=== PATIENT | male | born 1950 | race Caucasian/White ===

== ENCOUNTER 2018-04-05 15:15 | Inpatient (IN) | payer MEDICARE, OTHER ==
[2018-04-05] MEDS: IPRATROPIUM (NEB) 0.5 MG/2.5 ML AMP INH (15:31)
[2018-04-05] MEDS: ALBUTEROL 0.083% (NEB) 2.5 MG/3 ML AMP HHN (15:31)
[2018-04-05 15:39] LABS: ADD MAN DIFF? NO
[2018-04-05 15:47] LABS: WHITE BLOOD COUNT 6.9 10^3/ul (4.8-10.8)
[2018-04-05 15:47] LABS: ABNORMAL IP MESSAGE 1; BASOPHILS % 0.6 % (0.0-2.0); EOSINOPHILS % 0.1 % (0.0-7.0); HEMATOCRIT 33.7 % (42.0-52.0); HEMOGLOBIN 11.1 g/dl (14.0-18.0); LYMPHOCYTES # 0.5 10^3/ul (0.8-2.9); LYMPHOCYTES % 7.6 % (15.0-51.0); MEAN CORPUSCULAR HEMOGLOBIN 28.2 pg (29.0-33.0); MEAN CORPUSCULAR HGB CONC 32.9 g/dl (32.0-37.0); MEAN CORPUSCULAR VOLUME 85.5 fl (82.0-101.0); MEAN PLATELET VOLUME 11.4 fl (7.4-10.4); MONOCYTE # 0.8 10^3/ul (0.3-0.9); MONOCYTES % 11.1 % (0.0-11.0); NEUTROPHIL # 5.5 10^3/ul (1.6-7.5); NEUTROPHILS % 80.3 % (39.0-77.0); PLATELET COUNT 184 10^3/UL (140-415); POSITIVE DIFF @See below; RED BLOOD COUNT 3.94 10^6/ul (4.70-6.10); RED CELL DISTRIBUTION WIDTH 14.4 % (11.5-14.5)
[2018-04-05] MEDS: SOD CHLORIDE 0.9% 1,000 ML IV ×2 (15:52→16:49)
[2018-04-05] MEDS: CEFEPIME 1GM/50 ML (PMX) 50 ML IVPB (16:01)
[2018-04-05 16:19] LABS: ALANINE AMINOTRANSFERASE 18 IU/L (13-69); ALBUMIN 3.6 g/dl (3.3-4.9); ALBUMIN/GLOBULIN RATIO 1.02; ALKALINE PHOSPHATASE 100 IU/L (42-121); ANION GAP 14 (5-13); ASPARTATE AMINO TRANSFERASE 23 IU/L (15-46); BILIRUBIN,INDIRECT 0.6 mg/dl (0-1.1); BILIRUBIN,TOTAL 0.6 mg/dl (0.2-1.3); BLOOD UREA NITROGEN 28 mg/dl (7-20); CALCIUM 9.7 mg/dl (8.4-10.2); CARBON DIOXIDE 25 mmol/L (21-31); CHLORIDE 100 mmol/L (97-110); CREATININE 0.59 mg/dl (0.61-1.24); Estimated GFR > 60 mL/min (>60); GLUCOSE 119 mg/dl (70-220); POTASSIUM 4.3 mmol/L (3.5-5.1); SODIUM 139 mmol/L (135-144); TOTAL PROTEIN 7.1 g/dl (6.1-8.1)
[2018-04-05 16:21] LABS: LACTIC ACID 2.2 mmol/L (0.5-2.0)
[2018-04-05 16:26] LABS: B-TYPE NATRIURETIC PEPTIDE 660 PG/ML (0-125)
[2018-04-05] MEDS: VANCOMYCIN 1 GM (PMX) 250 ML IVPB (16:48)
[2018-04-05] MEDS ORDERED: ACETAMINOPHEN 325 MG TAB PO (17:00)
[2018-04-05] MEDS ORDERED: ONDANSETRON 4 MG INJ IV (17:00)
[2018-04-05] MEDS ORDERED: DOCUSATE SODIUM 100 MG CAP PO (19:30)
[2018-04-05] MEDS ORDERED: ALBUTEROL 0.083% (NEB) 2.5 MG/3 ML AMP HHN (19:30)
[2018-04-05] MEDS ORDERED: GUAIFENESIN/DM 5ML CUP PO (19:30)
[2018-04-05] MEDS: TOPIRAMATE 100 MG TAB PO (20:57)
[2018-04-05] MEDS: CEFTRIAXONE 2 GM/50 ML (PMX) 50 ML IVPB (21:10)
[2018-04-05] MEDS: LEVETIRACETAM 500 MG TAB PO (21:11)
[2018-04-05] MEDS: METHADONE 10 MG TAB PO (21:12)
[2018-04-06 03:27] LABS: ADD UMIC YES; UR ASCORBIC ACID NEGATIVE (NEGATIVE); UR BACTERIA FEW /HPF (NONE SEEN); UR BILIRUBIN (Dip) 1+ mg/dL (NEGATIVE); UR BLOOD (Dip) NEGATIVE (NEGATIVE); UR CLARITY CLEAR (CLEAR); UR COLOR AMBER (YELLOW); UR GLUCOSE (Dip) NEGATIVE (NEGATIVE); UR KETONES (Dip) TRACE mg/dL (NEGATIVE); UR LEUKOCYTE ESTERASE (Dip) NEGATIVE Leu/ul (NEGATIVE); UR MUCUS FEW /HPF (NONE SEEN); UR NITRITE (Dip) NEGATIVE (NEGATIVE); UR RBC 1 /HPF (0-5); UR SPECIFIC GRAVITY (Dip) 1.035 (1.003-1.030); UR TOTAL PROTEIN (Dip) 1+ mg/dl (NEGATIVE); UR UROBILINOGEN (Dip) 2+ mg/dL (NEGATIVE); UR WBC 1 /HPF (0-5)
[2018-04-06] MEDS: LEVETIRACETAM 500 MG TAB PO ×2 (05:43→20:58)
[2018-04-06] MEDS: METHADONE 10 MG TAB PO ×2 (05:55→20:58)
[2018-04-06 06:02] LABS: ADD MAN DIFF? NO
[2018-04-06 06:09] LABS: WHITE BLOOD COUNT 5.9 10^3/ul (4.8-10.8)
[2018-04-06 06:09] LABS: BASOPHILS % 0.7 % (0.0-2.0); EOSINOPHILS % 0.2 % (0.0-7.0); HEMATOCRIT 28.9 % (42.0-52.0); HEMOGLOBIN 9.6 g/dl (14.0-18.0); LYMPHOCYTES # 0.7 10^3/ul (0.8-2.9); LYMPHOCYTES % 12.5 % (15.0-51.0); MEAN CORPUSCULAR HEMOGLOBIN 28.4 pg (29.0-33.0); MEAN CORPUSCULAR HGB CONC 33.2 g/dl (32.0-37.0); MEAN CORPUSCULAR VOLUME 85.5 fl (82.0-101.0); MEAN PLATELET VOLUME 10.8 fl (7.4-10.4); MONOCYTE # 0.7 10^3/ul (0.3-0.9); MONOCYTES % 11.6 % (0.0-11.0); NEUTROPHIL # 4.4 10^3/ul (1.6-7.5); NEUTROPHILS % 74.8 % (39.0-77.0); PLATELET COUNT 260 10^3/UL (140-415); RED BLOOD COUNT 3.38 10^6/ul (4.70-6.10); RED CELL DISTRIBUTION WIDTH 14.6 % (11.5-14.5)
[2018-04-06 06:28] LABS: INR 1.27; PROTIME 16.1 Sec (11.9-14.9); PT RATIO 1.3
[2018-04-06 06:31] LABS: LACTIC ACID 1.1 mmol/L (0.5-2.0)
[2018-04-06 06:35] LABS: ALANINE AMINOTRANSFERASE 17 IU/L (13-69); ALBUMIN 3.1 g/dl (3.3-4.9); ALKALINE PHOSPHATASE 75 IU/L (42-121); ANION GAP 5 (5-13); ASPARTATE AMINO TRANSFERASE 17 IU/L (15-46); BILIRUBIN,INDIRECT 0.3 mg/dl (0-1.1); BILIRUBIN,TOTAL 0.3 mg/dl (0.2-1.3); BLOOD UREA NITROGEN 24 mg/dl (7-20); CALCIUM 8.3 mg/dl (8.4-10.2); CARBON DIOXIDE 30 mmol/L (21-31); CHLORIDE 105 mmol/L (97-110); CREATININE 0.53 mg/dl (0.61-1.24); Estimated GFR > 60 mL/min (>60); GLUCOSE 122 mg/dl (70-220); MAGNESIUM 2.2 mg/dl (1.7-2.5); PHOSPHORUS 2.7 mg/dl (2.5-4.9); POTASSIUM 3.4 mmol/L (3.5-5.1); SODIUM 140 mmol/L (135-144); TOTAL PROTEIN 6.2 g/dl (6.1-8.1)
[2018-04-06 06:52] LABS: TROPONIN-I 0.128 ng/ml (0.000-0.120)
[2018-04-06] MEDS: TOPIRAMATE 100 MG TAB PO ×2 (09:00→20:59)
[2018-04-06] MEDS: ENOXAPARIN 40 MG/0.4 ML SYG SC (09:22)
[2018-04-06 09:38] LABS: HEMOGLOBIN A1C 5.5 % (0-5.9)
[2018-04-06] MEDS: POTASSIUM CHLORIDE 20 MEQ POWDER FOR ORAL SOLN PO (18:16)
[2018-04-06] MEDS: ASPIRIN (EC) 81 MG TAB PO (18:16)
[2018-04-06] MEDS: ENOXAPARIN 60 MG/0.6 ML SYG SC (21:07)
[2018-04-06] MEDS: clonAZEPAM 0.5 MG TAB PO (22:26)
[2018-04-06] MEDS: CEFTRIAXONE 2 GM/50 ML (PMX) 50 ML IVPB (22:28)
[2018-04-07 06:41] LABS: ADD MAN DIFF? NO
[2018-04-07 06:47] LABS: BASOPHIL # 0.1 10^3/ul (0.0-0.1); BASOPHILS % 0.7 % (0.0-2.0); EOSINOPHILS # 0.1 10^3/ul (0.0-0.5); EOSINOPHILS % 0.7 % (0.0-7.0); HEMATOCRIT 30.9 % (42.0-52.0); LYMPHOCYTES # 0.8 10^3/ul (0.8-2.9); LYMPHOCYTES % 11.2 % (15.0-51.0); MEAN CORPUSCULAR HGB CONC 32.4 g/dl (32.0-37.0); MEAN CORPUSCULAR VOLUME 86.6 fl (82.0-101.0); MEAN PLATELET VOLUME 11.4 fl (7.4-10.4); MONOCYTE # 0.6 10^3/ul (0.3-0.9); MONOCYTES % 8.5 % (0.0-11.0); NEUTROPHIL # 5.4 10^3/ul (1.6-7.5); NEUTROPHILS % 78.6 % (39.0-77.0); PLATELET COUNT 231 10^3/UL (140-415); RED BLOOD COUNT 3.57 10^6/ul (4.70-6.10); RED CELL DISTRIBUTION WIDTH 14.7 % (11.5-14.5)
[2018-04-07 06:47] LABS: WHITE BLOOD COUNT 6.8 10^3/ul (4.8-10.8)
[2018-04-07 07:22] LABS: CHOL/HDL RATIO 3.4 RATIO; HDL CHOLESTEROL 45 mg/dl (30-78); LDL CHOLESTEROL,CALCULATED 93 mg/dl; TRIGLYCERIDES 91 mg/dl (0-149)
[2018-04-07 07:22] LABS: CHOLESTEROL 156 mg/dl (100-200)
[2018-04-07 07:25] LABS: ALANINE AMINOTRANSFERASE 13 IU/L (13-69); ALBUMIN 3.4 g/dl (3.3-4.9); ALBUMIN/GLOBULIN RATIO 1.09; ALKALINE PHOSPHATASE 91 IU/L (42-121); ANION GAP 8 (5-13); ASPARTATE AMINO TRANSFERASE 26 IU/L (15-46); BILIRUBIN,INDIRECT 0.3 mg/dl (0-1.1); BILIRUBIN,TOTAL 0.3 mg/dl (0.2-1.3); BLOOD UREA NITROGEN 21 mg/dl (7-20); CALCIUM 8.7 mg/dl (8.4-10.2); CARBON DIOXIDE 26 mmol/L (21-31); CHLORIDE 106 mmol/L (97-110); CREATININE 0.41 mg/dl (0.61-1.24); Estimated GFR > 60 mL/min (>60); GLUCOSE 97 mg/dl (70-220); MAGNESIUM 2.2 mg/dl (1.7-2.5); PHOSPHORUS 2.7 mg/dl (2.5-4.9); POTASSIUM 3.6 mmol/L (3.5-5.1); SODIUM 140 mmol/L (135-144); TOTAL PROTEIN 6.5 g/dl (6.1-8.1)
[2018-04-07 07:41] LABS: TROPONIN-I 0.187 ng/ml (0.000-0.120)
[2018-04-07] MEDS: TOPIRAMATE 100 MG TAB PO ×2 (09:00→20:50)
[2018-04-07] MEDS: METHADONE 10 MG TAB PO ×2 (09:54→21:05)
[2018-04-07] MEDS: FOLIC ACID 1 MG TAB PO (09:55)
[2018-04-07] MEDS: LEVETIRACETAM 500 MG TAB PO ×2 (09:55→21:01)
[2018-04-07] MEDS: ASPIRIN (EC) 81 MG TAB PO (09:55)
[2018-04-07] MEDS: POTASSIUM CHLORIDE 20 MEQ POWDER FOR ORAL SOLN PO (09:55)
[2018-04-07] MEDS: ENOXAPARIN 60 MG/0.6 ML SYG SC ×2 (10:28→21:07)
[2018-04-07 17:00] LABS: CREATINE KINASE 30 IU/L (23-200)
[2018-04-07 17:11] LABS: CK INDEX 1.1; CK-MB 0.32 ng/ml (0.0-2.4)
[2018-04-07 17:15] LABS: TROPONIN-I 0.195 ng/ml (0.000-0.120)
[2018-04-07] MEDS: CEFTRIAXONE 2 GM/50 ML (PMX) 50 ML IVPB (21:00)
[2018-04-07] MEDS: clonAZEPAM 0.5 MG TAB PO (21:06)
[2018-04-08 07:06] LABS: ADD MAN DIFF? NO
[2018-04-08 07:11] LABS: WHITE BLOOD COUNT 5.7 10^3/ul (4.8-10.8)
[2018-04-08 07:11] LABS: BASOPHIL # 0.1 10^3/ul (0.0-0.1); BASOPHILS % 0.9 % (0.0-2.0); EOSINOPHILS # 0.2 10^3/ul (0.0-0.5); EOSINOPHILS % 4.1 % (0.0-7.0); HEMATOCRIT 32.1 % (42.0-52.0); HEMOGLOBIN 10.2 g/dl (14.0-18.0); LYMPHOCYTES % 16.8 % (15.0-51.0); MEAN CORPUSCULAR HEMOGLOBIN 27.9 pg (29.0-33.0); MEAN CORPUSCULAR HGB CONC 31.8 g/dl (32.0-37.0); MEAN CORPUSCULAR VOLUME 87.7 fl (82.0-101.0); MEAN PLATELET VOLUME 10.7 fl (7.4-10.4); MONOCYTE # 0.6 10^3/ul (0.3-0.9); NEUTROPHIL # 3.8 10^3/ul (1.6-7.5); NEUTROPHILS % 66.7 % (39.0-77.0); PLATELET COUNT 294 10^3/UL (140-415); RED BLOOD COUNT 3.66 10^6/ul (4.70-6.10); RED CELL DISTRIBUTION WIDTH 14.7 % (11.5-14.5)
[2018-04-08] MEDS: clonAZEPAM 0.5 MG TAB PO (07:38)
[2018-04-08 07:39] LABS: PHOSPHORUS 2.9 mg/dl (2.5-4.9)
[2018-04-08 07:39] LABS: MAGNESIUM 2.2 mg/dl (1.7-2.5)
[2018-04-08 07:42] LABS: CREATINE KINASE < 20 IU/L (23-200)
[2018-04-08 07:46] LABS: CK-MB 0.36 ng/ml (0.0-2.4)
[2018-04-08 07:50] LABS: ALANINE AMINOTRANSFERASE 20 IU/L (13-69); ALBUMIN 3.3 g/dl (3.3-4.9); ALBUMIN/GLOBULIN RATIO 0.97; ALKALINE PHOSPHATASE 81 IU/L (42-121); ANION GAP 8 (5-13); ASPARTATE AMINO TRANSFERASE 19 IU/L (15-46); BILIRUBIN,INDIRECT 0.2 mg/dl (0-1.1); BILIRUBIN,TOTAL 0.2 mg/dl (0.2-1.3); BLOOD UREA NITROGEN 21 mg/dl (7-20); CALCIUM 8.8 mg/dl (8.4-10.2); CARBON DIOXIDE 28 mmol/L (21-31); CHLORIDE 106 mmol/L (97-110); CREATININE 0.52 mg/dl (0.61-1.24); Estimated GFR > 60 mL/min (>60); GLUCOSE 98 mg/dl (70-220); POTASSIUM 4.6 mmol/L (3.5-5.1); SODIUM 142 mmol/L (135-144); TOTAL PROTEIN 6.7 g/dl (6.1-8.1); TROPONIN-I 0.167 ng/ml (0.000-0.120)
[2018-04-08] MEDS: POTASSIUM CHLORIDE 20 MEQ POWDER FOR ORAL SOLN PO (08:43)
[2018-04-08] MEDS: METHADONE 10 MG TAB PO ×2 (08:43→20:46)
[2018-04-08] MEDS: FOLIC ACID 1 MG TAB PO (08:43)
[2018-04-08] MEDS: ASPIRIN (EC) 81 MG TAB PO (08:43)
[2018-04-08] MEDS: LEVETIRACETAM 500 MG TAB PO ×2 (08:44→20:43)
[2018-04-08] MEDS: ENOXAPARIN 60 MG/0.6 ML SYG SC ×2 (08:50→21:02)
[2018-04-08] MEDS: QUETIAPINE 100 MG TAB PO ×3 (10:40→20:45)
[2018-04-08] MEDS ORDERED: QUETIAPINE 100 MG TAB PO (20:30)
[2018-04-08] MEDS: CEFTRIAXONE 2 GM/50 ML (PMX) 50 ML IVPB (20:43)
[2018-04-09 07:50] LABS: ADD MAN DIFF? NO
[2018-04-09 07:52] LABS: BASOPHIL # 0.1 10^3/ul (0.0-0.1); BASOPHILS % 0.7 % (0.0-2.0); EOSINOPHILS # 0.2 10^3/ul (0.0-0.5); EOSINOPHILS % 2.9 % (0.0-7.0); HEMOGLOBIN 9.7 g/dl (14.0-18.0); LYMPHOCYTES # 0.7 10^3/ul (0.8-2.9); LYMPHOCYTES % 8.8 % (15.0-51.0); MEAN CORPUSCULAR HEMOGLOBIN 28.1 pg (29.0-33.0); MEAN CORPUSCULAR HGB CONC 32.3 g/dl (32.0-37.0); MEAN PLATELET VOLUME 10.2 fl (7.4-10.4); MONOCYTE # 0.7 10^3/ul (0.3-0.9); MONOCYTES % 9.1 % (0.0-11.0); PLATELET COUNT 263 10^3/UL (140-415); RED BLOOD COUNT 3.45 10^6/ul (4.70-6.10); RED CELL DISTRIBUTION WIDTH 14.7 % (11.5-14.5)
[2018-04-09 07:52] LABS: WHITE BLOOD COUNT 7.6 10^3/ul (4.8-10.8)
[2018-04-09 08:14] LABS: PHOSPHORUS 2.9 mg/dl (2.5-4.9)
[2018-04-09 08:22] LABS: ANION GAP 9 (5-13); CARBON DIOXIDE 27 mmol/L (21-31); CHLORIDE 105 mmol/L (97-110); Estimated GFR > 60 mL/min (>60); SODIUM 141 mmol/L (135-144)
[2018-04-09 08:29] LABS: BLOOD UREA NITROGEN 21 mg/dl (7-20); CALCIUM 8.6 mg/dl (8.4-10.2); GLUCOSE 103 mg/dl (70-220)
[2018-04-09 08:36] LABS: TROPONIN-I 0.184 ng/ml (0.000-0.120)
[2018-04-09] MEDS: FOLIC ACID 1 MG TAB PO (08:40)
[2018-04-09] MEDS: LEVETIRACETAM 500 MG TAB PO ×2 (08:40→20:21)
[2018-04-09] MEDS: ASPIRIN (EC) 81 MG TAB PO (08:41)
[2018-04-09] MEDS: POTASSIUM CHLORIDE 20 MEQ POWDER FOR ORAL SOLN PO (08:42)
[2018-04-09] MEDS: ENOXAPARIN 60 MG/0.6 ML SYG SC ×2 (08:54→20:34)
[2018-04-09] MEDS: REGADENOSON 0.4 MG/5 ML SYG (11:48)
[2018-04-09] MEDS: METHADONE 10 MG TAB PO ×2 (14:03→20:23)
[2018-04-09] MEDS: QUETIAPINE 100 MG TAB PO ×2 (14:57→20:22)
[2018-04-09] MEDS: CEFTRIAXONE 2 GM/50 ML (PMX) 50 ML IVPB (20:24)
[2018-04-10 06:53] LABS: ADD MAN DIFF? NO
[2018-04-10 06:59] LABS: WHITE BLOOD COUNT 5.9 10^3/ul (4.8-10.8)
[2018-04-10 06:59] LABS: BASOPHIL # 0.1 10^3/ul (0.0-0.1); BASOPHILS % 0.9 % (0.0-2.0); EOSINOPHILS # 0.3 10^3/ul (0.0-0.5); EOSINOPHILS % 5.3 % (0.0-7.0); HEMATOCRIT 28.5 % (42.0-52.0); HEMOGLOBIN 9.2 g/dl (14.0-18.0); LYMPHOCYTES # 0.6 10^3/ul (0.8-2.9); LYMPHOCYTES % 10.9 % (15.0-51.0); MEAN CORPUSCULAR HEMOGLOBIN 28.3 pg (29.0-33.0); MEAN CORPUSCULAR HGB CONC 32.3 g/dl (32.0-37.0); MEAN CORPUSCULAR VOLUME 87.7 fl (82.0-101.0); MEAN PLATELET VOLUME 10.2 fl (7.4-10.4); MONOCYTE # 0.6 10^3/ul (0.3-0.9); MONOCYTES % 10.1 % (0.0-11.0); NEUTROPHIL # 4.3 10^3/ul (1.6-7.5); NEUTROPHILS % 72.3 % (39.0-77.0); PLATELET COUNT 263 10^3/UL (140-415); RED BLOOD COUNT 3.25 10^6/ul (4.70-6.10); RED CELL DISTRIBUTION WIDTH 14.6 % (11.5-14.5)
[2018-04-10 07:13] LABS: ANION GAP 7 (5-13); BLOOD UREA NITROGEN 23 mg/dl (7-20); CALCIUM 8.8 mg/dl (8.4-10.2); CARBON DIOXIDE 31 mmol/L (21-31); CHLORIDE 104 mmol/L (97-110); CREATININE 0.54 mg/dl (0.61-1.24); Estimated GFR > 60 mL/min (>60); GLUCOSE 99 mg/dl (70-220); SODIUM 142 mmol/L (135-144)
[2018-04-10 07:14] LABS: PHOSPHORUS 3.4 mg/dl (2.5-4.9)
[2018-04-10 07:14] LABS: MAGNESIUM 2.1 mg/dl (1.7-2.5)
[2018-04-10 07:26] LABS: TROPONIN-I 0.181 ng/ml (0.000-0.120)
[2018-04-10] MEDS: ASPIRIN (EC) 81 MG TAB PO (08:50)
[2018-04-10] MEDS: QUETIAPINE 100 MG TAB PO (08:51)
[2018-04-10] MEDS: LEVETIRACETAM 500 MG TAB PO (08:51)
[2018-04-10] MEDS: POTASSIUM CHLORIDE 20 MEQ POWDER FOR ORAL SOLN PO (08:51)
[2018-04-10] MEDS: FOLIC ACID 1 MG TAB PO (08:51)
[2018-04-10] MEDS: METHADONE 10 MG TAB PO (08:52)
[2018-04-10] MEDS: ENOXAPARIN 60 MG/0.6 ML SYG SC (09:02)
[2018-04-10] MEDS ORDERED: ATORVASTATIN 20 MG TAB PO (21:00)
[2018-04-11] MEDS ORDERED: CLOPIDOGREL 75 MG TAB PO (09:00)
[2018-04-11] MEDS ORDERED: ENOXAPARIN 30 MG/0.3 ML SYG SC (09:00)
[2018-04-11 17:41] LABS: PROCALCITONIN 0.11 ng/mL (<0.10)
== END 2018-04-10 15:14 | disposition still patient (30) | DRG 193 ==
LOC: TEL 04-06 12:44 → E/R 15:15 → 2NE 16:34
DX: J18.9 Pneumonia, unspecified organism (principal); I21.4 Non-ST elevation (NSTEMI) myocardial infarction; E44.0 Moderate protein-calorie malnutrition; Z68.1 Body mass index [BMI] 19.9 or less, adult; G40.909 Epilepsy, unspecified, not intractable, without status epilepticus; I10 Essential (primary) hypertension; Z95.0 Presence of cardiac pacemaker; Z85.841 Personal history of malignant neoplasm of brain
CPT/HCPCS: 36415; 71045; 78452; 80048; 80053; 80061; 81001; 82550; 82553; 83036; 83605; 83735; 83880; 84100; 84145; 84443; 84484; 85025; 85610; 87040; 87081; 87400; 90686; 92610; 93005; 93017; 93306; 94664; 96374; 99285-25